=== PATIENT | female | born 1985 | race American Indian/Alaskan Native ===

== ENCOUNTER 2016-09-29 03:33 | Emergency (ER) | payer SELFPAY ==
[2016-09-29 03:49] VITALS: BP 119/67
[2016-09-29] MEDS ORDERED: ZOFRAN ODT ONE (03:50)
[2016-09-29] MEDS ORDERED: ZOFRAN ODT PO ONE (03:57)
[2016-09-29 04:14] LABS: Basophils % (Auto) 0.6 % (0.0-1.8); Eosinophils % (Auto) 0.2 % (0.0-4.3); Hematocrit 41.4 % (30.3-42.9); Hemoglobin 13.9 gm/dl (10.1-14.3); Mean Corpuscular HGB Conc 34 % (30-34); Mean Corpuscular Hemoglobin 32 pg (28-32); Mean Corpuscular Volume 95 fl (79-97); Platelet Count 244 K/mm3 (140-440); Red Blood Count 4.37 M/mm3 (3.65-5.03); White Blood Count 5.8 K/mm3 (4.5-11.0)
[2016-09-29 04:34] LABS: Alanine Aminotransferase 16 units/L (7-56); Albumin 4.3 g/dL (3.9-5); Albumin/Globulin Ratio 1.6 %; Alkaline Phosphatase 58 units/L (35-129); Anion Gap 17 mmol/L; BUN/Creatinine Ratio 8.57; Blood Urea Nitrogen 6 mg/dL (7-17); Calcium 9.2 mg/dL (8.4-10.2); Carbon Dioxide 25 mmol/L (22-30); Chloride 102.2 mmol/L (98-107); Glucose 104 mg/dL (65-100); Lipase 24 units/L (13-60); Potassium 3.9 mmol/L (3.6-5.0); Sodium 140 mmol/L (137-145)
== END 2016-09-29 06:06 | disposition left against medical advice (07) ==
LOC: ED 03:33
DX: R10.9 Unspecified abdominal pain (principal); R11.10 Vomiting, unspecified; R19.7 Diarrhea, unspecified; Z88.0 Allergy status to penicillin; Z53.21 Procedure and treatment not carried out due to patient leaving prior to being seen by health care provider
CPT/HCPCS: 36415; 80053; 83690; 85025; Q0162